=== PATIENT | male | born 1980 | race Caucasian/White ===

== ENCOUNTER 2017-04-28 13:27 | Emergency (ER) | payer OTHER ==
[~2017-04-28] VITALS: Wt 72.6 kg
[2017-04-28] MEDS ORDERED: VENTOLIN HFA 1818 GM INH (13:56)
[2017-04-28 14:40] LABS: INFLUENZA A ANTIGEN None Detected (None Detect); INFLUENZA B ANTIGEN None Detected (None Detect)
[2017-04-28 14:55] LABS: ABSOLUTE BASOPHILS 0.1 thou/uL (0.0-0.2); ABSOLUTE EOSINOPHILS 0.1 thou/uL (0.0-0.7); ABSOLUTE MONOCYTES 0.4 thou/uL (0.0-1.2); ABSOLUTE NEUTROPHILS 4.3 thou/uL (1.6-8.1); BASOPHILS 1.1 %; HEMATOCRIT 46.1 % (42.0-52.0); HEMOGLOBIN 16.3 gm/dL (14.0-18.0); LYMPHOCYTES 29.1 %; MCH 31.7 pg (26.0-34.0); MCHC 35.3 g/dL (28.0-37.0); MCV 89.9 fL (80.0-100.0); MONOCYTES 6.3 %; MPV 9.1 fl. (7.2-11.1); NUCLEATED RBCS 0 /100WBC; PLATELET COUNT* 192 thou/uL (150-400); POLYS 62.5 %; RBC 5.13 mil/uL (4.50-6.00); RDW-CV 13.2 % (10.5-14.5); WBC 6.9 thou/uL (4.0-11.0)
[2017-04-28 15:02] LABS: ANION GAP 9 mmol/L (7-16); BUN 19 mg/dL (7-18); CALCIUM 8.3 mg/dL (8.5-10.1); CHLORIDE 102 mmol/L (98-107); CO2 28 mmol/L (21-32); GLUCOSE 143 mg/dL (70-99); POTASSIUM 3.6 mmol/L (3.5-5.1); SODIUM 139 mmol/L (136-145)
[2017-04-28 15:08] LABS: ALKALINE PHOSPHATASE 107 U/L (46-116); LIPASE 159 U/L (73-393); SGOT 26 U/L (15-37); SGPT 33 U/L (30-65); TOTAL BILIRUBIN 0.4 mg/dL (<0.1-1.0); TOTAL PROTEIN 7.5 g/dL (6.4-8.2); TROPONIN-I LEVEL <0.06 ng/mL (<0.06)
[2017-04-28 15:30] LABS: URINE BILIRUBIN NEGATIVE (Negative); URINE BLOOD NEGATIVE (Negative); URINE CLARITY CLEAR; URINE COLOR YELLOW; URINE GLUCOSE-RANDOM NEGATIVE (Negative); URINE KETONES NEGATIVE (Negative); URINE LEUKOCYTES NEGATIVE (Negative); URINE NITRITE NEGATIVE (Negative); URINE PROTEIN NEGATIVE (Negative); URINE UROBILINOGEN 0.2 E.U./dl (0.2-1.0)
[2017-04-28] MEDS ORDERED: PROAIR HFA8.5 GM INH (15:38)
[2017-04-28] MEDS ORDERED: KEFLEX500 M1 PO (15:38)
[2017-04-28 15:40] LABS: AMP/METHAMP Negative (Negative); BARBITURATES Negative (Negative); BENZODIAZEPINES Negative (Negative); COCAINE Negative (Negative); METHADONE Negative (Negative); OPIATES Negative (Negative); PCP Negative (Negative); THC Negative (Negative)
[2017-04-28 16:13] VITALS: BP 126/77
--- NOTE | 2017-04-29 11:44 | EKG ---
[place] [address] ELECTROCARDIOGRAM REPORT Name: DINA SULTANA Room: [facility]#: [id number] Admission: 04/28/17 Attend Phys: Discharge: 04/28/17 Date of : 84 Report #: [id number] THIS REPORT FOR: //name// [facility] ED Test Date: 2017-04-28 Test Time: 14:37:49 Pat Name: DINA LIODepartment: Room: Gender: Plant Manager: Cintia MENESES : 1980 Requested By: Patrizia Garrett Order Number: [id number] MD: Flo Burris Measurements Intervals [place] Rate: 88 P: 39 [place]: 138 QRS: 12 QRSD: 77 T: 1 QT: 362 QTc: 438 Interpretive Statements Sinus rhythm No previous ECG available for comparison Electronically Signed On 04-29-2017 11:44:40 [employer] by Flo Burris [email or web address] <ELECTRONICALLY SIGNED> By: Flo Burris MD, [facility] 04/29/17 1144 1437 1437 Flo Burris MD, FACC /EPI
== END 2017-04-28 16:14 | disposition home or self-care (01) ==
LOC: M.ERS 13:27
PROVIDERS: Nurse Practitioner Family; Physician Assistant
DX: R06.02 Shortness of breath (principal); R73.9 Hyperglycemia, unspecified; H66.90 Otitis media, unspecified, unspecified ear; J45.909 Unspecified asthma, uncomplicated